=== PATIENT | female | born 1990 | race Caucasian/White ===

== ENCOUNTER 2018-03-10 21:32 | Emergency (ER) | payer MEDICAID ==
[~2018-03-10] VITALS: Ht 170.2 cm; Wt 73.0 kg
[2018-03-11] MEDS ORDERED: ALBUTEROL (0.083%) 2.5MG/3ML NEB HHN ONE (01:00)
[2018-03-11 01:32] LABS: BASOPHILS % 0.8 % (0.0-2.0); EOSINOPHILS % 3.1 % (0.0-5.0); HEMATOCRIT. 39.6 % (36.0-48.0); HEMOGLOBIN. 13.4 g/dL (12.0-16.0); LYMPHOCYTES % 20.3 % (20.0-50.0); MEAN CORPUSCULAR HEMOGLOBIN 28.5 pg (28.0-32.0); MEAN CORPUSCULAR VOLUME 83.9 fL (81.0-99.0); MEAN PLATELET VOLUME 8.9 fl (7.4-10.4); MONOCYTES % 9.9 % (2.0-8.0); NEUTROPHILS % 65.9 % (40.0-76.0); PLATELET 324 x1000/uL (130-400); RED BLOOD CELL COUNT 4.72 mill/uL (4.2-5.4); RED CELL DISTRIBUTION WIDTH 13.6 % (11.6-14.6)
[2018-03-11 01:38] LABS: CHLORIDE 107 mEq/L (98-107)
[2018-03-11] MEDS ORDERED: PREDNISONE 20MG TABLET PO ONE (02:30)
[2018-03-11 02:50] VITALS: BP 110/83
== END 2018-03-11 02:50 | disposition home or self-care (01) ==
LOC: ER 21:32
DX: J45.909 Unspecified asthma, uncomplicated (principal)
CPT/HCPCS: 36415; 71045; 80053; 81025; 83880; 85025; 94644; 99285; J7512; J7611